=== PATIENT | male | born 1965 | race American Indian/Alaskan Native ===

== ENCOUNTER 2021-10-31 06:17 | Emergency (ER) | payer SELFPAY ==
--- NOTE | 2021-10-31 07:19 | Emergency Department Report ---
HPI - General Chief Complaint: Abdominal Pain Time Seen by Provider: 10/31/21 06:30 - HPI HPI: Room 1 The patient is a 56-year-old male present with a chief complaint of right groin pain and swelling. The patient states for the past 2 to 3 weeks he has had intermittent swelling and pain in his right groin. The patient states he notices swelling throughout the day while he is working at times and spontaneously resolves. The patient states he last noticed the swelling started again yesterday and it worsened this morning. Patient states he developed nausea but no vomiting. Patient states he developed pain which prompted him to come to the emergency department via EMS. Patient states his last bowel movement occurred yesterday and was within normal limits. Patient currently gives his groin pain a score of 3/10. ED Past Medical Hx - Past Medical History Previous Medical History?: No - Surgical History Past Surgical History?: No Additional Surgical History: Right ankle fracture repair - Family History Family history: no significant - Social History Smoking Status: Never Smoker Substance Use Type: None (Denies illicit drug use), Alcohol (Occasional) - Medications Home Medications: Home Medications Medication Instructions Recorded Confirmed Last Taken Type traMADoL [Ultram] 50 mg PO Q6HR PRN #10 tablet 10/31/21 Unknown Rx ED Review of Systems ROS: Stated complaint: ABD PAIN Other details as noted in HPI Constitutional: denies: fever Eyes: denies: eye pain ENT: denies: throat pain Respiratory: no symptoms reported Cardiovascular: denies: chest pain Endocrine: no symptoms reported Gastrointestinal: abdominal pain, nausea. denies: vomiting, constipation Genitourinary: denies: dysuria Musculoskeletal: denies: back pain Neurological: denies: headache Physical Exam - Physical Exam Vital Signs: Vital Signs 10/31/21 06:22 Temperature 98 F Pulse Rate 59 L Respiratory 17 Rate Blood Pressure 134/118 [Right] O2 Sat by Pulse 96 Oximetry Physical Exam: GENERAL: The patient is well-developed well-nourished male standing in room niko nging into gown not appearing to be in acute distress. [] HEENT: Normocephalic. Atraumatic. Extraocular motions are intact. Patient has moist mucous membranes. NECK: Supple. Trachea midline CHEST/LUNGS: Clear to auscultation. There is no respiratory distress noted. HEART/CARDIOVASCULAR: Regular. There is no tachycardia. There is no gallop rub or murmur. ABDOMEN: Abdomen is soft, nontender. Patient has normal bowel sounds. There is no abdominal distention. SKIN: There is no rash. There is no edema. There is no diaphoresis. NEURO: The patient is awake, alert, and oriented. The patient is cooperative. The patient has no focal neurologic deficits. The patient has normal speech and gait. GCS 15 MUSCULOSKELETAL: There is no evidence of acute injury. ED Course Vital Signs 10/31/21 06:22 Temperature 98 F Pulse Rate 59 L Respiratory 17 Rate Blood Pressure 134/118 [Right] O2 Sat by Pulse 96 Oximetry ED Medical Decision Making - Lab Data Result diagrams: 10/31/21 08:24 10/31/21 08:24 - Radiology Data Radiology results: report reviewed (CT abdomen pel), image reviewed (CT abdomen pelvis) [facility] [address] [place] [address] Cat Scan Report Signed Patient: RICHA MARTINES MR#: [id number] 1 : 1965 Acct:[id number] Age/Sex: 56 / M ADM Date: 10/31/21 Loc: ED Attending Dr: Ordering Physician: LENY CHA MD Date of Service: 10/31/21 Procedure(s): CT abdomen pelvis w con Accession Number(s): [id number] cc: LENY CHA MD CT ABDOMEN AND PELVIS WITH CONTRAST INDICATION / CLINICAL INFORMATION: Right inguinal hernia 100 ML OMNI 300 . TECHNIQUE: Axial CT images were obtained through the abdomen and pelvis after 100 cc of Omnipaque 300 IV contrast. Sagittal and coronal reformatted images. All CT scans at this location are performed using CT dose reduction for ALARA by means of automated exposure control. COMPARISON: None available. FINDINGS: LOWER CHEST: No significant abnormality. LIVER: No significant abnormality. GALLBLADDER: No significant abnormality. BILE DUCTS: No significant abnormality. PANCREAS: No significant abnormality. SPLEEN: No significant abnormality. ADRENALS: No significant abnormality. RIGHT KIDNEY and URETER: No significant abnormality. LEFT KIDNEY and URETER: No significant abnormality. STOMACH and SMALL BOWEL: A moderate indirect right inguinal hernia is identified containing a loop of distal small bowel. The hernia extends to the superior scrotal sac. There is no convincing evidence for obstruction. No inflammation. The stomach and small bowel loops are otherwise unremarkable. COLON: No significant abnormality. APPENDIX: Not clearly identified. PERITONEUM: No free fluid. No free air. No fluid collection. LYMPH NODES: No significant adenopathy. AORTA and ARTERIES: Mild atherosclerotic calcification without acute abnormality. IVC and VEINS: No significant abnormality. URINARY BLADDER: No significant abnormality. REPRODUCTIVE ORGANS: No significant abnormality. ADDITIONAL FINDINGS: None. SKELETAL SYSTEM: There are large areas of avascular necrosis in both femoral head cyst. There is suggestion of mild bony fragmentation of the right femoral head. Mild degenerative changes are noted at L5-S1. No suspicious bony lesion. IMPRESSION: Moderate indirect right inguinal hernia as described above. Avascular necrosis of both femoral heads. Bony fragmentation of the right femoral head is suspected. Consider further evaluation with MRI of the hips. Signer Name: Mike Ha Jr, MD Signed: 10/31/2021 9:59 AM Workstation Name: [id number] Transcribed By: TTR Dictated By: MIKE HA JR, MD Electronically Authenticated By: MIKE HA JR, MD Signed Date/Time: 10/31/21958 DD/ 4 TD/TT: - Differential Diagnosis Inguinal hernia Critical care attestation.: If time is entered above; I have spent that time in minutes in the direct care of this critically ill patient, excluding procedure time. ED Disposition Clinical Impression: Right inguinal hernia Disposition: 01 HOME / SELF CARE / HOMELESS Is pt being admited?: No Does the pt Need Aspirin: No Condition: Stable Instructions: Inguinal Hernia, Adult, [id number], Avascular Necrosis Additional Instructions: Return to the emergency department should you develop worsening symptoms, inability to tolerate food or liquids, high fever or any other concerns Prescriptions: traMADoL [Ultram] 50 mg PO Q6HR PRN #10 tablet PRN Reason: Pain Referrals: DIAZ ALONZO [Other] - 3-5 Days FELISA HAMMONDS MD [Staff Physician] - 3-5 Days KRISTEN VELÁZQUEZ MD [Staff Physician] - 3-5 Days (Dr. Velázquez is an orthopedic surgeon. Please follow-up with him for further evaluation of your possible avascular necrosis of your hips.) Time of Disposition: 10:09
[2021-10-31 08:46] LABS: Basophils % (Auto) 0.3 % (0.0-1.8); Eosinophils % (Auto) 0.2 % (0.0-4.3); Hematocrit 38.2 % (35.5-45.6); Hemoglobin 12.5 gm/dl (11.8-15.2); Lymphocytes # (Auto) 0.9 K/mm3 (1.2-5.4); Mean Corpuscular HGB Conc 33 % (32-34); Mean Corpuscular Volume 89 fl (84-94); Monocytes # (Auto) 0.8 K/mm3 (0.0-0.8); Monocytes % (Auto) 11.4 % (0.0-7.3); Platelet Count 249 K/mm3 (140-440); Red Blood Count 4.27 M/mm3 (3.65-5.03)
[2021-10-31 09:00] LABS: Alanine Aminotransferase 27 units/L (7-56); Albumin 4.6 g/dL (3.9-5); BUN/Creatinine Ratio 20; Blood Urea Nitrogen 16 mg/dL (9-20); Calcium 9.7 mg/dL (8.4-10.2); Hemolysis Index 1
--- NOTE | 2021-10-31 10:03 | Cat Scan Report ---
CT ABDOMEN AND PELVIS WITH CONTRAST INDICATION / CLINICAL INFORMATION: Right inguinal hernia 100 ML OMNI 300 . TECHNIQUE: Axial CT images were obtained through the abdomen and pelvis after 100 cc of Omnipaque 300 IV contras t. Sagittal and coronal reformatted images. All CT scans at this location are performed using CT dose reduction for ALARA by means of automated exposure control. COMPARISON: None available. FINDINGS: LOWER CHEST: No significant abnormality. LIVER: No significant abnormality. GALLBLADDER: No significant abnormality. BILE DUCTS: No significant abnormality. PANCREAS: No significant abnormality. SPLEEN: No significant abnormality. ADRENALS: No significant abnormality. RIGHT KIDNEY and URETER: No significant abnormality. LEFT KIDNEY and URETER: No significant abnormality. STOMACH and SMALL BOWEL: A moderate indirect right inguinal hernia is identified containing a loop of distal small bowel. The hernia extends to the superior scrotal sac. There is no convincing evidence for obstruction. No inflammation. The stomach and small bowel loops are otherwise unremarkable. COLON: No significant abnormality. APPENDIX: Not clearly identified. PERITONEUM: No free fluid. No free air. No fluid collection. LYMPH NODES: No significant adenopathy. AORTA and ARTERIES: Mild atherosclerotic calcification without acute abnormality. IVC and VEINS: No significant abnormality. URINARY BLADDER: No significant abnormality. REPRODUCTIVE ORGANS: No significant abnormality. ADDITIONAL FINDINGS: None. SKELETAL SYSTEM: There are large areas of avascular necrosis in both femoral head cyst. There is sugg estion of mild bony fragmentation of the right femoral head. Mild degenerative changes are noted at L 5-S1. No suspicious bony lesion. IMPRESSION: Moderate indirect right inguinal hernia as described above. Avascular necrosis of both femoral heads. Bony fragmentation of the right femoral head is suspected. Consider further evaluation with MRI of the hips. Signer Name: Mike Ha Jr, MD Signed: 10/31/2021 9:59 AM Workstation Name: [id number]
[2021-10-31 10:53] VITALS: BP 158/92
== END 2021-10-31 10:59 | disposition home or self-care (01) ==
LOC: ED 06:17
DX: K40.90 Unilateral inguinal hernia, without obstruction or gangrene, not specified as recurrent (principal); Z72.89 Other problems related to lifestyle
CPT/HCPCS: 36415; 74177; 80053; 85025; 99284; Q9967